=== PATIENT | male | born 1950 | race Caucasian/White ===

== ENCOUNTER 2021-12-18 12:34 | Observation (INO) ==
[2021-12-18] MEDS ORDERED: NS 0.9% 1000 ml BAG 1,000 ML IV ONE (13:40)
[2021-12-18] MEDS ORDERED: Iohexol 350 (CONTRAST) 500 ML MDV IV ONE (13:46)
[2021-12-18] MEDS ORDERED: hydrALAZINE 20 mg/ml 1 ML Vial IV IV SLOW PU ONE (14:52)
[2021-12-18 15:00] LABS: ABS Lymphocytes 0.8 10^3/ul (1.0-4.8); ABS Monocytes 0.7 10^3/ul (0-0.8); Eosinophil % 0.6 %; Hematocrit 46 % (42-52); Hemoglobin 15.6 g/dL (14.0-18.0); Mean Corpuscular HGB Conc 34 g/dL (31-36); Mean Corpuscular Hemoglobin 34 pg (27-31); Mean Corpuscular Volume 100 fL (80-94); Mean Platelet Volume 9.6 fL (7.4-10.4); Platelet Count 187 10^3/uL (150-450); Red Blood Count 4.65 10^6 /uL (4.18-5.48); Red Cell Distribution Width 14 % (10-15); White Blood Count 6.5 10^3/uL (3.5-10.8)
[2021-12-18 15:14] LABS: Activated Partial Thrombo Time 29.5 seconds (26.0-38.0); INR 1.3 (0.86-1.15)
[2021-12-18 16:30] LABS: Albumin 4.1 g/dL (3.2-5.2); Albumin/Globulin Ratio 1.8 (1-3); Calcium 9.1 mg/dL (8.6-10.3); Globulin 2.3 g/dL (2-4); Potassium 4.2 mmol/L (3.5-5.0); Total Protein 6.4 g/dL (6.4-8.9); eGFR CKD-EPI 53.6 (>60)
[2021-12-18 17:28] LABS: C Reactive Protein 1.89 mg/L (<8.01)
[2021-12-18] MEDS ORDERED: Magnesium Hydroxide LIQ 30 ML UDC PO PRN (17:45)
[2021-12-18] MEDS ORDERED: hydrALAZINE 20 mg/ml 1 ML Vial IV IV SLOW PU PRN (17:58)
[2021-12-18] MEDS ORDERED: NS 0.9% 1000 ml BAG 1,000 ML IV SCH (18:15)
[2021-12-18] MEDS: Carbidopa/Levodop 25/100 MG TAB PO SCH ×2 (19:07→22:17)
[2021-12-18 20:06] LABS: TSH Ultra Thyroid Stim Horm 1.02 mcIU/mL (0.34-5.60)
[2021-12-18 20:17] LABS: Folate 11.21 ng/mL (5.90-24.80)
[2021-12-18] MEDS: Heparin 5000 UNITS/ML 1 mL VIAL SUBCUT SCH (22:18)
[2021-12-18 23:28] LABS: Urine Appearance Clear; Urine Bilirubin Negative (Negative); Urine Blood Negative (Negative); Urine Color Yellow; Urine Glucose Negative (Negative); Urine Ketones 1+ (Negative); Urine Nitrite Negative (Negative); Urine Protein Negative (Negative); Urine Specific Gravity 1.042 (1.002-1.030); Urine Urobilinogen Negative (Negative)
[2021-12-19 06:27] LABS: ABS Eosinophils 0.1 10^3/ul (0-0.6); ABS Lymphocytes 1.2 10^3/ul (1.0-4.8); ABS Monocytes 0.8 10^3/ul (0-0.8); ABS Neutrophils 4.5 10^3/ul (1.5-7.7); Eosinophil % 1.7 %; Hematocrit 45 % (42-52); Hemoglobin 14.9 g/dL (14.0-18.0); Lymphocyte % 17.6 %; Mean Corpuscular HGB Conc 33 g/dL (31-36); Mean Corpuscular Hemoglobin 33 pg (27-31); Mean Corpuscular Volume 99 fL (80-94); Mean Platelet Volume 9.5 fL (7.4-10.4); Nucleated Red Blood Cells % 0.1; Platelet Count 175 10^3/uL (150-450); Red Blood Count 4.52 10^6 /uL (4.18-5.48); Red Cell Distribution Width 14 % (10-15); White Blood Count 6.6 10^3/uL (3.5-10.8)
[2021-12-19 06:55] LABS: Potassium 4.1 mmol/L (3.5-5.0); eGFR CKD-EPI 63.2 (>60)
[2021-12-19] MEDS: Heparin 5000 UNITS/ML 1 mL VIAL SUBCUT SCH ×2 (08:14→21:20)
[2021-12-19] MEDS: Carbidopa/Levodop 25/100 MG TAB PO SCH ×2 (08:14→17:08)
[2021-12-20] MEDS ORDERED: Carbidopa/Levodop 25/100 MG TAB PO SCH (09:00)
[2021-12-20] MEDS: Heparin 5000 UNITS/ML 1 mL VIAL SUBCUT SCH (09:21)
[2021-12-20 11:30] VITALS: BP 141/88
[2021-12-20] MEDS ORDERED: COVID VACC, MONOVAL PFIZER-TRIS 30 MCG/0.3 ML SYR IM ONE (15:00)
== END 2021-12-20 16:40 | disposition home or self-care (01) ==
LOC: EDHOLD 12:34 → ED 12:34 → SUATTDRO 18:05 → EDHOLD 20:41 → MED 20:47
PROVIDERS: ADMIT Nurse Practitioner; ATTEND Hospitalist